=== PATIENT | female | born 1945 | race Two or more races ===

== ENCOUNTER 2018-07-01 11:31 | Emergency (ER) | payer MEDICARE, OTHER ==
[~2018-07-01] VITALS: Ht 142.2 cm; Wt 41.3 kg
[2018-07-01 12:04] VITALS: BP 141/85; Ht 142.2 cm; Wt 41.3 kg
== END 2018-07-01 12:30 | disposition home or self-care (01) ==
LOC: ED 11:31
DX: M79.89 Other specified soft tissue disorders (principal); M79.641 Pain in right hand; M81.0 Age-related osteoporosis without current pathological fracture; Z88.8 Allergy status to other drugs, medicaments and biological substances; M19.90 Unspecified osteoarthritis, unspecified site